=== PATIENT | female | born 1980 | race Caucasian/White ===

== ENCOUNTER 2018-03-03 12:22 | Emergency (ER) | payer MEDICAID ==
[2018-03-03 12:55] VITALS: BP 134/97
[2018-03-03] MEDS ORDERED: Ketorolac 60 MG/2 ML SDV IM ONE (13:28)
[2018-03-03] MEDS ORDERED: Bacitracin Oint 1 GM U/D Packet TOP ONE (13:29)
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
== END 2018-03-03 14:11 | disposition home or self-care (01) ==
LOC: JP.ED 12:22
DX: T23.201A Burn of second degree of right hand, unspecified site, initial encounter (principal); F17.210 Nicotine dependence, cigarettes, uncomplicated; X08.8XXA Exposure to other specified smoke, fire and flames, initial encounter
CPT/HCPCS: 96372; 99283; J1885; 99282

== ENCOUNTER 2019-04-19 12:24 | Emergency (ER) | payer MEDICAID ==
[2019-04-19] MEDS ORDERED: Thiamine 100 MG Tab PO ONE (13:18)
[2019-04-19] MEDS ORDERED: LORazepam 1 MG Tab PO ONE (13:18)
--- NOTE | 2019-04-19 13:23 | EDM.PDOCBH ---
ED HPI GENERAL MEDICAL PROBLEM - General Chief Complaint: Behavioral/Psych Stated Complaint: FAST HEART RATE, SENT FROM CLINIC Time Seen by Provider: 04/19/19 13:05 Source of Information: Reports: Patient, Old Records History Limitations: Reports: No Limitations - History of Present Illness INITIAL COMMENTS - FREE TEXT/NARRATIVE: 38 yo female presented to the clinic today requested medical clearance for detox and was referred to the ER. Wants to go to [place] for alcohol. Was there once before many yrs ago. Last drank yesterday morning. Is noting tremors and rapid HR, no seizures. Denies black or bloody stools. Had vomiting yesterday , but not today. Is not dizzy with standing. Denies possibility of . Onset: Gradual Onset Date: 04/18/19 Duration: Day(s): (1+), Getting Worse Location: Reports: Generalized Quality: Reports: Other (no pain reported.) Severity: Moderate Improves with: Reports: None Worsens with: Reports: Other (not drinking) Context: Reports: Other (see HPI) Associated Symptoms: Reports: Nausea/Vomiting (better today). 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) - Related Data Allergies Allergy/AdvReac Type Severity Reaction Status Date / Time Latex, Natural Rubber Allergy Swollen Verified 04/19/19 12:44 Eyes Home Meds: Home Meds NK [No Known Home Meds] 08/01/16 [History] Past Medical History [employer] History: Reports: Psychiatric History: Reports: Addiction - Infectious Disease History Infectious Disease History: Reports: Chicken Pox - Past Surgical History Head Surgeries/Procedures: Reports: None Female Surgical History: Reports: Section Social & Family History - Tobacco Use Smoking Status *Q: Current Every Day Smoker Years of Tobacco use: 25 Packs/Tins Daily: 0.5 - Caffeine Use Caffeine Use: Reports: None - Alcohol Use Days Per Week of Alcohol Use: 7 Number of Drinks Per Day: 10 Total Drinks Per Week: 70 - Recreational Drug Use Recreational Drug Use: No ED ROS GENERAL - Review of Systems Review Of Systems: See Below Constitutional: Reports: No Symptoms HEENT: Reports: No Symptoms Respiratory: Reports: No Symptoms Cardiovascular: Reports: Other (tachycardia) Endocrine: Reports: No Symptoms GI/Abdominal: Reports: Nausea, Vomiting (better today). Denies: Abdominal Pain , Black Stool, Bloody Stool, Constipation, Diarrhea, Decreased Appetite, Distension, Flatus, Hematemesis, Hematochezia, Melena : Reports: No Symptoms Musculoskeletal: Reports: No Symptoms Skin: Reports: No Symptoms Neurological: Reports: Tremors Psychiatric: Reports: Anxiety ED EXAM, BEHAVIORAL HEALTH - Physical Exam Exam: See Below Exam Limited By: No Limitations General Appearance: Alert, WD/WN, No Apparent Distress Eye Exam: Bilateral Eye: Normal Inspection Ears: Normal External Exam, Normal Canal, Hearing Grossly Normal, Normal TMs Nose: Normal Inspection, No Blood Throat/Mouth: Normal Inspection, Normal Lips, Normal Oropharynx, Normal Voice, No Airway Compromise Head: Atraumatic, Normocephalic Neck: Normal Inspection Respiratory/Chest: No Respiratory Distress, Lungs Clear, Normal Breath Sounds, No Accessory Muscle Use Cardiovascular: Regular Rate, Rhythm, No Edema, Tachycardia GI/Abdominal: Normal Bowel Sounds, Soft, Non-Tender, No Distention Back Exam: Normal Inspection. No: CVA Tenderness (R), CVA Tenderness (L) Extremities: Normal Inspection, Normal Range of Motion, Non-Tender, No Pedal Edema Neurological: Alert, Normal Mood/Affect, CN II-XII Intact, Normal Cognition, No Motor/Sensory Deficits, Oriented x 3, Tremor Psychiatric: Alert, Normal Affect, Normal Cognition, Normal Mood, Oriented COURSE, BEHAVIORAL HEALTH COMP - Course Vital Signs: Last Vital Signs Temp 36.3 C 04/19/19 12:48 Pulse 129 H 04/19/19 12:48 Resp 18 04/19/19 12:48 BP 157/101 H 04/19/19 12:48 Pulse Ox 96 04/19/19 12:48 Orders, Labs, Meds: Laboratory Tests 04/19/19 04/19/19 Range/Units 12:50 13:38 Urine Opiates Screen Negative (NEGATIVE) Ur Oxycodone Screen Negative (NEGATIVE) Urine Methadone Screen Negative (NEGATIVE) Ur Propoxyphene Screen Negative (NEGATIVE) Ur Barbiturates Screen Negative (NEGATIVE) Ur Tricyclics Screen Negative (NEGATIVE) Ur Phencyclidine Scrn Negative (NEGATIVE) Ur Amphetamine Screen Negative (NEGATIVE) U Methamphetamines Scrn Presumptive positive H (NEGATIVE) Urine MDMA Screen Negative (NEGATIVE) U Benzodiazepines Scrn Negative (NEGATIVE) U Cocaine Metab Screen Negative (NEGATIVE) U Marijuana (THC) Screen Negative (NEGATIVE) Ethyl Alcohol < 3 mg/dL Medications Discontinued Medications Generic Name Dose Route Start Last Admin Trade Name Bradley PRN Reason Stop Dose Admin Lorazepam 1 mg 04/19/19 13:18 04/19/19 13:54 Ativan PO 04/19/19 13:19 1 mg ONETIME ONE Administration Thiamine HCl 100 mg 04/19/19 13:18 04/19/19 13:54 Vitamin B-1 PO 04/19/19 13:19 100 mg ONETIME ONE Administration Medical Clearance: 04/19/19 14:07 Accepted at [place]. Departure - Departure Time of Disposition: 14:10 Disposition: DC/Tfer to Other Condition: Fair Clinical Impression: Alcohol withdrawal Qualifiers: Complication of substance-induced condition: uncomplicated Qualified Code(s): F10.230 - Alcohol dependence with withdrawal, uncomplicated - Discharge Information *PRESCRIPTION DRUG MONITORING PROGRAM REVIEWED*: No *COPY OF PRESCRIPTION DRUG MONITORING REPORT IN PATIENT FARIHA: No Referrals: PCP,None [Primary Care Provider] - Forms: ED Department Discharge
[2019-04-19 14:17] VITALS: BP 145/91; PULSE 104
== END 2019-04-19 14:33 | disposition other institution (70) ==
LOC: JP.ED 12:24
DX: F10.230 Alcohol dependence with withdrawal, uncomplicated (principal); F17.210 Nicotine dependence, cigarettes, uncomplicated; Z91.040 Latex allergy status
CPT/HCPCS: 36415; 80305; 99285; A9270; G0480; 99283

== ENCOUNTER 2024-06-07 19:39 | Emergency (ER) | payer MEDICAID ==
[2024-06-07 19:47] VITALS: BP 123/97; PULSE 90
== END 2024-06-07 22:14 | disposition other institution (70) ==
LOC: JP.ED 19:39
DX: S06.0X1A Concussion with loss of consciousness of 30 minutes or less, initial encounter (principal); S02.2XXB Fracture of nasal bones, initial encounter for open fracture; S00.81XA Abrasion of other part of head, initial encounter; F17.210 Nicotine dependence, cigarettes, uncomplicated; Z91.040 Latex allergy status; Z91.048 Other nonmedicinal substance allergy status; Z79.899 Other long term (current) drug therapy; W19.XXXA Unspecified fall, initial encounter
CPT/HCPCS: 70450; 70486; 99284; 99285